=== PATIENT | female | born 1985 | race Caucasian/White ===

== ENCOUNTER 2020-01-07 17:15 | Emergency (ER) | payer MEDICAID ==
[~2020-01-07] VITALS: Ht 180.3 cm; Wt 84.1 kg
== END 2020-01-07 18:21 | disposition home or self-care (01) ==
LOC: ER 17:16
DX: B34.9 Viral infection, unspecified (principal); Z20.828 Contact with and (suspected) exposure to other viral communicable diseases; F17.200 Nicotine dependence, unspecified, uncomplicated; Z88.2 Allergy status to sulfonamides
CPT/HCPCS: 36415; 87635; 99283

== ENCOUNTER 2020-06-18 00:19 | Emergency (ER) | payer MEDICAID ==
[~2020-06-18] VITALS: Ht 180.3 cm; Wt 70.7 kg
[2020-06-18 01:19] LABS: BASOPHILS % (AUTO) 0.5 % (0-1); EOSINOPHILS % (AUTO) 0.7 % (0-6); HEMOGLOBIN 16.3 g/dl (14.0-17.9); LYMPHOCYTES # (AUTO) 0.6 X10'3 (1.1-4.8); LYMPHOCYTES % (AUTO) 15.8 % (21-51); MEAN CORPUSCULAR HEMOGLOBIN 31.5 PG (27.0-31.0); MEAN CORPUSCULAR VOLUME 92.6 FL (78-98); MEAN PLATELET VOLUME 9.1 FL (7.4-10.4); MONOCYTES # (AUTO) 0.2 X10'3 (0-0.9); MONOCYTES % (AUTO) 5.9 % (2-12); NEUTROPHILS # (AUTO) 2.8 X10'3 (1.8-7.7); NEUTROPHILS % (AUTO) 77.1 % (42-75); PLATELET COUNT 177 X10'3 (140-440); RED BLOOD COUNT 5.18 X10'6 (4.70-6.10); RED CELL DISTRIBUTION WIDTH 13.6 % (11.5-14.5); WHITE BLOOD COUNT 3.7 X10'3 (4.5-11.0)
[2020-06-18] MEDS: acetaminophen 325mg tablet PO STA (01:22)
[2020-06-18 01:27] LABS: ALANINE AMINOTRANSFERASE 280 U/L (12-78); ALBUMIN 3.7 G/DL (3.4-5.0); ALBUMIN/GLOBULIN RATIO 0.9 (1.1-1.5); ALKALINE PHOSPHATASE 225 IU/L (46-116); ANION GAP 9 (8-16); ASPARTATE AMINO TRANSFERASE 203 U/L (10-37); BILIRUBIN,TOTAL 2.8 MG/DL (0.1-1.0); BLOOD UREA NITROGEN 11 MG/DL (7-18); BUN/CREATININE RATIO 9.9 (5.4-32.0); CALCIUM 8.6 MG/DL (8.5-10.1); CHLORIDE 97 MMOL/L (99-107); CREATININE 1.11 MG/DL (0.60-1.10); GLUCOSE 128 MG/DL (70-104); POTASSIUM 4.6 MMOL/L (3.5-5.1); SODIUM 135 MMOL/L (135-145); TOTAL CARBON DIOXIDE 28.7 MMOL/L (24-32); TOTAL PROTEIN 7.6 G/DL (6.4-8.2); eGFR 76 ML/MIN
[2020-06-18] MEDS: normal saline 1000ML IV soln IV ONE (01:34)
[2020-06-18 03:18] LABS: CLARITY,URINE CLEAR (Clear); COLOR,URINE YELLOW (Yellow); GLUCOSE, URINE NEGATIVE (Neg); KETONES,URINE 15 mg/dl (Neg); LEUKOCYTE ESTERASE ,URINE NEGATIVE (Neg); NITRITES, URINE NEGATIVE (Neg); OCCULT BLOOD,URINE NEGATIVE (Neg); PROTEIN,URINE NEGATIVE (Neg)
[2020-06-18 03:31] LABS: UA COLLECTION TYPE CLN CATCH MIDSTREAM
--- NOTE | 2020-06-18 03:50 | NUR ---
PT DOZING ON ASHISH, AWAKENED FOR VS
[2020-06-18 05:32] VITALS: BP 113/66
== END 2020-06-18 05:34 | disposition home or self-care (01) ==
LOC: ER 00:22
DX: R50.9 Fever, unspecified (principal); R11.2 Nausea with vomiting, unspecified; M54.5 Low back pain; R31.9 Hematuria, unspecified; R51.9 Headache, unspecified; R79.89 Other specified abnormal findings of blood chemistry; K75.9 Inflammatory liver disease, unspecified; Z88.2 Allergy status to sulfonamides
CPT/HCPCS: 36415; 71045; 80053; 81003; 83605; 84145; 85025; 87040; 96360; 99285; J7030

== ENCOUNTER 2022-06-14 06:23 | Emergency (ER) | payer MEDICAID ==
[~2022-06-14] VITALS: Ht 180.3 cm; Wt 73.2 kg
[2022-06-14 06:26] VITALS: BP 106/73
[2022-06-14] MEDS ORDERED: ibuprofen tablet 400 MG TABLET PO ONE (07:00)
[2022-06-14] MEDS ORDERED: acetaminophen 325mg tablet PO ONE (07:00)
[2022-06-14] MEDS ORDERED: ACET650T58 PO (08:48)
[2022-06-14] MEDS ORDERED: IBUP-1985 PO (08:48)
== END 2022-06-14 09:00 | disposition home or self-care (01) ==
LOC: ER 06:24
DX: B34.9 Viral infection, unspecified (principal); Z20.822 Contact with and (suspected) exposure to COVID-19; J02.9 Acute pharyngitis, unspecified; R51.9 Headache, unspecified; Z88.2 Allergy status to sulfonamides; Z79.899 Other long term (current) drug therapy
CPT/HCPCS: 87081; 87502; 87503; 87811; 87880; 99283

== ENCOUNTER 2022-09-06 21:45 | Emergency (ER) | payer MEDICAID ==
[~2022-09-06 21:45] MED LIST: IBUP-1985 PO
== END 2022-09-07 00:18 | disposition left against medical advice (07) ==
LOC: ER 21:46
DX: M79.646 Pain in unspecified finger(s) (principal); Z53.21 Procedure and treatment not carried out due to patient leaving prior to being seen by health care provider